=== PATIENT | male | born 1990 | race Asian ===

== ENCOUNTER 2019-06-18 09:59 | Emergency (ER) | payer MEDICAID ==
[~2019-06-18] VITALS: Ht 152.4 cm; Wt 100.0 kg
[2019-06-18] MEDS ORDERED: ALBU8HFA IH (10:12)
[2019-06-18] MEDS ORDERED: ALBU2.5V2 NEB (10:51)
[2019-06-18] MEDS ORDERED: FLUT220HFA IH (10:51)
[2019-06-18] MEDS ORDERED: FLUT16H NASAL (10:51)
[2019-06-18] MEDS ORDERED: 0.9% SODIUM CHLORIDE 15 ML NEB SOLUTION NEB ONE (10:52)
[2019-06-18] MEDS ORDERED: IPRATROPIUM BROMIDE 0.5 MG/2.5 ML NEB SOLUTION NEB ONE (11:00)
[2019-06-18] MEDS ORDERED: ALBUTEROL SULFATE HFA 90 MCG/PUFF 8 GM INHALER IH ONE (11:00)
[2019-06-18] MEDS ORDERED: ALBUTEROL SULFATE 5 MG/ML 20 ML NEB SOLN [BULK] NEB ONE (11:00)
[2019-06-18 13:01] VITALS: BP 116/63
== END 2019-06-18 13:23 | disposition home or self-care (01) ==
LOC: EMS 10:02
DX: J45.901 Unspecified asthma with (acute) exacerbation (principal); Z91.010 Allergy to peanuts; Z79.899 Other long term (current) drug therapy
CPT/HCPCS: 94640; 94644; J3535

== ENCOUNTER 2019-12-08 23:19 | Emergency (ER) | payer MEDICAID ==
[~2019-12-08] VITALS: Ht 167.6 cm; Wt 81.8 kg
[~2019-12-08 23:19] MED LIST: ALBU2.5V2 NEB; ALBU8HFA IH; FLUT16H NASAL; FLUT220HFA IH
[2019-12-08 23:30] VITALS: BP 141/86
[2019-12-08] MEDS ORDERED: ALBUTEROL SULFATE HFA 90 MCG/PUFF 8 GM INHALER IH ONE (23:45)
[2019-12-08] MEDS ORDERED: PredniSONE 20 MG TABLET PO ONE (23:45)
== END 2019-12-09 01:46 | disposition home or self-care (01) ==
LOC: EMS 23:19
DX: R06.02 Shortness of breath (principal); J45.909 Unspecified asthma, uncomplicated; Z20.828 Contact with and (suspected) exposure to other viral communicable diseases; Z91.010 Allergy to peanuts
CPT/HCPCS: 71045; 94640; 99284; J7512; U0003; J3535

== ENCOUNTER 2021-05-26 05:46 | Emergency (ER) | payer MEDICAID ==
[~2021-05-26] VITALS: Ht 172.7 cm; Wt 95.0 kg
[2021-05-26 05:54] VITALS: BP 119/73
== END 2021-05-26 08:56 | disposition left against medical advice (07) ==
LOC: EMS 05:46
DX: R06.02 Shortness of breath (principal); Z53.21 Procedure and treatment not carried out due to patient leaving prior to being seen by health care provider